=== PATIENT | female | born 1975 ===

== ENCOUNTER 2022-02-04 18:47 | Emergency (ER) | payer SELFPAY ==
[2022-02-05] MEDS ORDERED: HYDROcodone/ACETAMINOPHEN 5-325 MG TAB PO STA (02:02)
[2022-02-05] MEDS ORDERED: TETANUS,DIPH,PERTUSS(ACELL) VACCINE 0.5 ML SYRINGE IM ONE (02:02)
--- NOTE | 2022-02-05 02:13 | Emergency Department Report ---
ED Animal Bite HPI - General Chief Complaint: Animal Bite Stated Complaint: DOG BITE/RT LEG AND SIDE Time Seen by Provider: 02/05/22 02:02 Source: patient Mode of arrival: Ambulatory Limitations: No Limitations - History of Present Illness Initial Comments: 46-year-old female presents emerged from complaining being bitten by her neighbors dog x2 just prior to arrival. States bite was unprovoked and she was bitten on the lateral aspect of her right knee as well as the right flank area in the left hand region. She reports no abdominal pain, no chest pain the pain is dull and throbbing to the bite site with some scant bleeding to the knee bite site. Animal control was lower notified and has taken the animal away. She reports no fever, chills, sweats. No chest pain palpitation. No nausea no vomiting MD Complaint: animal bite -: Gradual Location: abdomen Right: Knee Animal: dog Animal Control Notified: Yes Mechanism: bite Pain Description: dull Context: unprovoked Associated Symptoms: none - Related Data Patient Tetanus UTD: No Previous Rx's Medication Instructions Recorded Last Taken Type Amoxicillin/K Clav Tab [Augmentin 1 tab PO Q12HR #20 tab 02/05/22 Unknown Rx 875 mg] traMADoL [Ultram] 50 mg PO Q6HR PRN #14 tablet 02/05/22 Unknown Rx Allergies Allergy/AdvReac Type Severity Reaction Status Date / Time No Known Allergies Allergy Verified 02/04/22 18:55 ED Review of Systems ROS: Stated complaint: DOG BITE/RT LEG AND SIDE Other details as noted in HPI Comment: All other systems reviewed and negative ED Past Medical Hx - Social History Smoking Status: Never Smoker Substance Use Type: None - Medications Home Medications: Home Medications Medication Instructions Recorded Confirmed Last Taken Type Amoxicillin/K Clav Tab [Augmentin 1 tab PO Q12HR #20 tab 02/05/22 Unknown Rx 875 mg] traMADoL [Ultram] 50 mg PO Q6HR PRN #14 tablet 02/05/22 Unknown Rx ED Physical Exam - General Limitations: No Limitations General appearance: alert, in no apparent distress - Head Head exam: Present: atraumatic, normocephalic - Eye Eye exam: Present: normal appearance, PERRL, EOMI Pupils: Present: normal accommodation - ENT ENT exam: Present: normal exam, normal orophraynx, mucous membranes moist, TM's normal bilaterally - Neck Neck exam: Present: normal inspection, full ROM - Respiratory Respiratory exam: Present: normal lung sounds bilaterally. Absent: respiratory distress, wheezes, rales, chest wall tenderness, accessory muscle use - Cardiovascular Cardiovascular Exam: Present: regular rate, normal rhythm. Absent: systolic murmur, diastolic murmur, rubs, gallop - GI/Abdominal GI/Abdominal exam: Present: soft, normal bowel sounds - Extremities Exam Extremities exam: Present: normal inspection, normal capillary refill - Back Exam Back exam: Present: normal inspection. Absent: CVA tenderness (R), CVA tenderness (L), muscle spasm - Neurological Exam Neurological exam: Present: alert, oriented X3, CN II-XII intact, normal gait - Psychiatric Psychiatric exam: Present: normal affect, normal mood. Absent: anxious, flat affect - Skin Skin exam: Present: warm, normal color, abrasion, ecchymosis, other. Absent: dry, intact, rash - Expanded Skin Exam Expanded 1 - Superficial puncture wound to this region in the BiPAP 2 - Bruising puncture wound to this region and the and the bite meaghan ED Course Vital Signs 02/04/22 18:51 Temperature 97 F L Pulse Rate 102 H Respiratory 16 Rate Blood Pressure 125/80 O2 Sat by Pulse 96 Oximetry Critical care attestation.: If time is entered above; I have spent that time in minutes in the direct care of this critically ill patient, excluding procedure time. ED Disposition Clinical Impression: Dog bite Disposition: HOME / SELF CARE / HOMELESS Is pt being admited?: No Does the pt Need Aspirin: No Condition: Stable Instructions: Animal Bite, Adult Prescriptions: Amoxicillin/K Clav Tab [Augmentin 875 mg] 1 tab PO Q12HR #20 tab traMADoL [Ultram] 50 mg PO Q6HR PRN #14 tablet PRN Reason: Pain Referrals: [facility] [Provider Group] - 3-5 Days
[2022-02-05 02:58] VITALS: BP 132/84
== END 2022-02-05 03:03 | disposition home or self-care (01) ==
LOC: ED 18:47
DX: S81.051A Open bite, right knee, initial encounter (principal); S31.159A Open bite of abdominal wall, unspecified quadrant without penetration into peritoneal cavity, initial encounter; S61.452A Open bite of left hand, initial encounter; W54.0XXA Bitten by dog, initial encounter; Y93.89 Activity, other specified; Y92.89 Other specified places as the place of occurrence of the external cause; Y99.8 Other external cause status
CPT/HCPCS: 90471; 90715; 99282